=== PATIENT | female | born 1965 | race Caucasian/White ===

== ENCOUNTER 2017-05-09 21:54 | Emergency (ER) | payer BC ==
[~2017-05-09] VITALS: Ht 165.1 cm; Wt 100.0 kg
[2017-05-10] MEDS ORDERED: PRAVACHOL 20MG20 MG PO (00:06)
[2017-05-10] MEDS ORDERED: MIDOL CAPLET1 EACH PO (00:07)
[2017-05-10] MEDS ORDERED: ZESTRIL20 M1 PO (00:07)
[2017-05-10] MEDS ORDERED: APPLE CIDER VI300 MG PO (00:08)
[2017-05-10] MEDS ORDERED: SYNTHROID0.05 MG PO (00:08)
[2017-05-10] MEDS ORDERED: LOPRESSOR 225 MG/TAB PO (00:08)
[2017-05-10] MEDS ORDERED: NATURAL FLAX1000 MG PO (00:09)
[2017-05-10] MEDS ORDERED: CIPRO 500MG TA500 MG PO (02:07)
[2017-05-10] MEDS ORDERED: PERCOCET 325 MG1 TA2 PO (02:07)
[2017-05-10 02:20] VITALS: BP 127/74
== END 2017-05-10 02:20 | disposition home or self-care (01) ==
LOC: ED 21:54
DX: N28.89 Other specified disorders of kidney and ureter (principal); N13.6 Pyonephrosis; R10.31 Right lower quadrant pain; R10.11 Right upper quadrant pain; I10 Essential (primary) hypertension; E78.5 Hyperlipidemia, unspecified; R11.2 Nausea with vomiting, unspecified; Z87.442 Personal history of urinary calculi; Z90.49 Acquired absence of other specified parts of digestive tract; Z90.710 Acquired absence of both cervix and uterus; R63.0 Anorexia; E07.9 Disorder of thyroid, unspecified
CPT/HCPCS: J0744; J1885; J2405; J7030

== ENCOUNTER → 2017-05-10 | Outpatient (CLI) | payer BC ==
[~2017-05-10] MED LIST: APPLE CIDER VI300 MG PO; CIPRO 500MG TA500 MG PO; LOPRESSOR 225 MG/TAB PO; MIDOL CAPLET1 EACH PO; NATURAL FLAX1000 MG PO; PERCOCET 325 MG1 TA2 PO; PRAVACHOL 20MG20 MG PO; SYNTHROID0.05 MG PO; ZESTRIL20 M1 PO
[2017-05-10 02:20] VITALS: BP 127/74
== END ==
LOC: RAD 13:51
DX: N28.1 Cyst of kidney, acquired (principal)
CPT/HCPCS: Q9967